=== PATIENT | male | born 1965 | race Hispanic/Latino ===

== ENCOUNTER 2022-12-29 15:27 | Emergency (ER) | payer SELFPAY ==
--- NOTE | ~2022-12-29 | CT_ITS ---
EXAMINATION: CT abdomen pelvis w con DATE: 12/29/2022 21:20 INDICATION: trauma, fell off 6 foot ladder, L flank TECHNIQUE: Computed tomography (CT) of the abdomen and pelvis was performed with 100 mL Omnipaque-350 intravenous contrast. Automated exposure control and iterative reconstruction technique were employe d. The dose-length product was 375.51 mGy-cm. COMPARISON: None. FINDINGS: Lower thorax: Bilateral dependent atelectasis. Left lower lobe scar/atelectasis. Liver: Diffuse fatty infiltration. Biliary/Gallbladder: Gallbladder is normal. No bile duct dilation. Pancreas: No mass or duct dilation. Spleen: Normal. Adrenals:No mass. Kidneys: No suspicious mass, obstructing stone, or hydronephrosis. GI tract: Mild distal esophageal and gastric wall edema. No small or large bowel dilation. Normal frank endix. Mesentery/Peritoneum: No ascites, mass, or free air. Retroperitoneum: No mass. Mild atherosclerotic abdominal aortic and/or arterial calcifications. Pelvis: Marked urinary bladder distention. Prostatomegaly. Soft Tissues: Soft tissues and body wall unremarkable. Bones: Moderate anterior wedge deformity at L1. Moderate height loss at L3 which appears chronic. De generative lumbar disc disease with large bridging osteophytes. Uncomplicated appearing sacral screws and screw and plate fixation of the pubic bones. Old healed pelvic fractures. Multiple old lumbar tr ansverse process fractures. IMPRESSION: Mild esophagitis/gastritis. Hepatic steatosis. Acute versus chronic moderate anterior wedge deformity at L1, correlate with pain/tenderness. Marked urinary bladder distention, correlate with symptoms of urinary retention. Reviewed, dictated and finalized at location K. IMPRESSION: Mild esophagitis/gastritis. Hepatic steatosis. Acute versus chronic moderate anterior wedge deformity at L1, correlate with pa in/tenderness. Marked urinary bladder distention, correlate with symptoms of urinary retention .
[2022-12-29 15:30] VITALS: BP 148/86; PULSE 83; RESP 16; TEMP 36.8; O2SAT 99
[2022-12-29 18:27] VITALS: BP 149/94; PULSE 69; RESP 18; O2SAT 100
--- NOTE | 2022-12-29 19:19 | ED.GENADULT ---
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 Reports he fell onto his left side. Reports having bruising and swelling to the left side/abdomen ever since the injury. Denies abdominal pain. He states it is mildly painful but he has been able to walk and function. Today he noticed more swelling. Denies any further site of pain or injury. Denies numbness, weakness, nausea, vomiting, fevers, chills, flank pain, Related Data Allergies Allergy/AdvReac Type Severity Reaction Status Date / Time No Known Allergies Allergy Verified 12/29/22 18:28 Review of Systems Review of Systems: All systems as dictated in HPI Exam Narrative: GENERAL: Well-appearing, well-nourished, and in no acute distress. HEAD: Normocephalic, atraumatic. EYES: PERRLA and EOMI. ENT: Nares clear, no rhinorrhea or epistaxis. Mucous membranes moist. Oropharynx without tonsillar hypertrophy exudate or other lesions. NECK: Supple. No adenopathy or masses. CHEST: No respiratory distress. Clear to auscultation. No wheezes rales or rhonchi HEART: Regular rate and rhythm. No murmur heard. Normal peripheral pulses. ABDOMEN: No flank tenderness bilaterally. Soft, grossly nontender abdomen, nondistended, normal active bowel sounds. MSK: Normal range of motion. No edema. SKIN: Left hip/abdomen soft tissue hematoma/ecchymosis present. The ecchymosis spans from the left flank into the lateral left abdomen. Minimal tenderness over the focal area of swelling in the left lateral abdomen. NEURO: Alert and oriented x3. No focal deficits. PSYCH: Normal mood and affect. Course Course Emergency Course: Reevaluation 2145: Patient is feeling much better after Toradol and would like to go home Vital Signs Vital signs: Vital Signs Temperature 98.2 F 12/29/22 15:30 Pulse Rate 83 12/29/22 15:30 Respiratory Rate 16 12/29/22 15:30 Blood Pressure 148/86 H 12/29/22 15:30 Pulse Oximetry 99 12/29/22 15:30 Temperature 98.2 F 12/29/22 15:30 Pulse Rate 76 12/29/22 22:17 Respiratory Rate 16 12/29/22 22:17 Blood Pressure 133/97 H 12/29/22 22:17 Pulse Oximetry 100 12/29/22 22:17 Medical Decision Making MDM Narrative Medical decision making narrative: This is a 57-year-old male who presents to the ED with chief complaint of a left hip/abdomen injury that occurred 8 days ago. Fell off a 6 foot ladder. Vitals are normal. Exam reveals soft tissue swelling to the left side of the abdomen laterally. Very minimal tenderness throughout the abdomen, low back and extremities. He complains of only mild pain. Lab work is largely unremarkable. CT abdomen pelvis with IV contrast shows: Mild esophagitis/gastritis. Hepatic steatosis. Acute versus chronic moderate anterior wedge deformity at L1, correlate with pain/tenderness. Marked urinary bladder distention, correlate with symptoms of urinary retention. Reevaluated the patient. He is feeling much better with Toradol. He has no midline spinal tenderness. He does not complain difficulties with with urinary retention. His symptoms are consistent with soft tissue swelling. There may be a hematoma that has formed but should resolve on its own. Low concern for any kind of abscess as he is nontender in the area and has no fever or elevated white count. Discussed the results of the scan and that he should have his liver evaluated with primary care doctor. Pt will be discharged in stable condition. Return precautions given and supportive measures
--- NOTE | 2022-12-29 19:21 | PC.NURSE ---
Assumed care of pt from ANGELA Marquez at this time.
[2022-12-29] MEDS: KETOROLAC 15 MG/ML VIAL (*BKC) IV PUSH (20:41)
[2022-12-29 20:47] LABS: Basophils Percent Auto 1.3 % (0.2-1.2); Eosinophils Absolute Auto 0.1 K/mm3 (0-0.3); Eosinophils Percent Auto 3.6 % (0-4.4); Hematocrit 42.9 % (42.0-52.0); Hemoglobin 14.6 g/dL (14.0-18.0); Immature Granulocyte Absolute 0.01 K/mm3 (0.00-0.031); Immature Granulocyte Percent A 0.3 % (0-0.5); Lymphocytes Absolute Auto 1.01 K/mm3 (0.9-3.2); Lymphocytes Percent Auto 33.3 % (18.3-44.2); Mean Corpuscular Hemoglobin 34.7 pg (26-34); Mean Corpuscular Volume 101.9 fl (80-100); Mean Platelet Volume 9.8 fl (7.4-10.4); Monocytes Absolute Auto 0.4 K/mm3 (0.1-0.6); Monocytes Percent Auto 12.2 % (2.6-8.5); Neutrophils Absolute Auto 1.5 K/mm3 (1.3-6.7); Neutrophils Percent Auto 49.3 % (45.5-73.1); Platelet Count Result 228 k/mm3 (150-375); Red Blood Count 4.21 M/mm3 (4.6-6.20); Red Cell Distribution Width 12.8 % (11.5-14.5)
[2022-12-29 20:52] VITALS: BP 145/95; PULSE 74; RESP 20; O2SAT 98
[2022-12-29 20:55] LABS: Alanine Aminotransferase 52 U/L (6-50); Albumin Level 4.3 g/dL (3.5-5.1); Alkaline Phosphatase 107 U/L (38-126); Anion Gap 13 mmol/L (8-16); Aspartate Amino Transferase 75 U/L (17-59); Bilirubin,Total 0.4 mg/dL (0.2-1.3); Blood Urea Nitrogen 5 mg/dL (9-20); Calcium 8.5 mg/dL (8.4-10.2); Carbon Dioxide 20 mmol/L (22-30); Chloride 107 mmol/L (98-107); Estimated CRCL calculation 117 ml/min; Estimated Glomerular Filt Rate > 60; Glucose 96 mg/dL (65-110); Potassium 3.7 mmol/L (3.4-5.0); Sodium 140 mmol/L (137-145)
[2022-12-29 22:17] VITALS: BP 133/97; PULSE 76; RESP 16; O2SAT 100
== END 2022-12-29 22:13 | disposition home or self-care (01) ==
PROVIDERS: Emergency Provider Physician Assistant
DX: R10.84 Generalized abdominal pain (principal); M54.50 Low back pain, unspecified; W11.XXXA Fall on and from ladder, initial encounter; K76.0 Fatty (change of) liver, not elsewhere classified
CPT/HCPCS: 36415; 74177; 80053; 85025; 96374; 99284; J1885; Q9967